=== PATIENT | female | born 1970 | race African-American/Black ===

== ENCOUNTER 2018-05-26 17:22 | Emergency (ER) | payer MEDICAID ==
[~2018-05-26] VITALS: Ht 172.7 cm; Wt 68.5 kg
[2018-05-26 17:40] VITALS: BP 118/76
[2018-05-26 18:22] LABS: APPEARANCE,URINE Clear (CLEAR); BILIRUBIN,URINE Negative (NEGATIVE); BLOOD, URINE Negative Ery/uL (NEGATIVE); COLOR,URINE Yellow (YELLOW); KETONES,URINE 15 (NEGATIVE); LEUKOCYTE ESTERASE ,URINE Negative (NEGATIVE); NITRITE, URINE Negative (NEGATIVE); PROTEIN,URINE Negative (NEGATIVE); UGLUCOSE Negative (NEGATIVE); UROBILINOGEN,URINE 0.2 EU/dL (0.2)
--- NOTE | 2018-05-26 18:55 | NUR ---
PT TO ED DT LOWER ABDOMINAL PAIN X 1 WEEK, WORSE SINCE YESTERDAY ASSOCIATED W/ FREQUENT URINATION. PATIENT IS AFEBRILE. VSS
[2018-05-26 18:57] LABS: BACTERIA,URINE Rare /HPF (None Seen); MUCUS,URINE Moderate /LPF (None Seen); RBC,URINE 0-2 /HPF (0-2); SQUAMOUS EPITHELIAL CELL,UR Few /HPF (None Seen); WBC,URINE 0-2 /HPF (0-3)
--- NOTE | 2018-05-26 19:13 | NUR ---
REPORT RECEIVED FROM GALILEA CYR FOR [facility].
== END 2018-05-26 20:12 | disposition home or self-care (01) ==
LOC: ER 17:35
DX: R10.2 Pelvic and perineal pain (principal); Z88.1 Allergy status to other antibiotic agents; Z88.0 Allergy status to penicillin; Z88.8 Allergy status to other drugs, medicaments and biological substances
CPT/HCPCS: 76856; 81001; 84703; 87086; 99285; A4606; Z7610; 81000-TC